=== PATIENT | male | born 1970 | race Caucasian/White ===

== ENCOUNTER → 2022-02-19 | Outpatient (CLI) | payer BC ==
[~2022-02-19] MED LIST: ALBU90OI INH; MONT10T PO; ZYRTEC10 M2 PO
== END ==
LOC: LAB 11:20 → LAB SHORT 11:20
PROVIDERS: Physician Assistant Medical
DX: K52.9 Noninfective gastroenteritis and colitis, unspecified (principal)
CPT/HCPCS: 82653; 83993